=== PATIENT | female | born 1955 | race Caucasian/White ===

== ENCOUNTER 2017-03-11 13:56 | Emergency (ER) | payer MEDICAID ==
[~2017-03-11] VITALS: Ht 152.4 cm; Wt 122.5 kg
[~2017-03-11 13:56] MED LIST: ALBU8.5H5 INH; FERR325T20 PO; FOLI-17 PO; GLYB5TAB3 PO; HYDR-3240 PO; HYDR25TA6 PO; LOSA25TA5 PO; METH2.5T PO; OMEP-110 PO; SIMV20TA3 PO; VENL150C6 PO
[2017-03-11 14:03] VITALS: BP 129/85
[2017-03-11] MEDS ORDERED: METF500T27 PO (14:38)
[2017-03-11] MEDS ORDERED: VENL150C6 PO (14:38)
[2017-03-11] MEDS ORDERED: OXYC-229 PO (14:38)
== END 2017-03-11 15:07 | disposition home or self-care (01) ==
LOC: ED 15:01
DX: Z76.0 Encounter for issue of repeat prescription (principal); E11.9 Type 2 diabetes mellitus without complications; I10 Essential (primary) hypertension; M06.9 Rheumatoid arthritis, unspecified; E78.5 Hyperlipidemia, unspecified
CPT/HCPCS: 99283

== ENCOUNTER 2017-09-09 20:31 | Emergency (ER) | payer MEDICAID ==
[~2017-09-09] VITALS: Ht 165.1 cm; Wt 127.0 kg
[~2017-09-09 20:31] MED LIST changes: +FERR325T18 PO; -FERR325T20 PO; +METF500T27 PO; +OXYC-307 PO
[2017-09-09 20:34] VITALS: BP 150/86
[2017-09-09] MEDS ORDERED: KETOROLAC 30 MG/1 ML ONE (20:49)
[2017-09-09] MEDS ORDERED: ONDANSETRON ODT 4 MG ONE (20:49)
[2017-09-09] MEDS ORDERED: METHOCARBAMOL 750 MG TABLET ONE (20:49)
[2017-09-09] MEDS ORDERED: HYDROcodone/APAP 5/325 TABLET ONE (20:49)
[2017-09-09] MEDS ORDERED: KETOROLAC 30 MG/1 ML IM ONE (21:00)
[2017-09-09] MEDS ORDERED: METHOCARBAMOL 750 MG TABLET PO ONE (21:00)
[2017-09-09] MEDS ORDERED: HYDROcodone/APAP 5/325 TABLET PO ONE (21:00)
[2017-09-09] MEDS ORDERED: ONDANSETRON ODT 4 MG PO ONE (21:00)
== END 2017-09-09 21:18 | disposition home or self-care (01) ==
LOC: ED 20:45
DX: M54.41 Lumbago with sciatica, right side (principal); G89.29 Other chronic pain; E11.9 Type 2 diabetes mellitus without complications; E78.5 Hyperlipidemia, unspecified; K21.9 Gastro-esophageal reflux disease without esophagitis; Z79.84 Long term (current) use of oral hypoglycemic drugs
CPT/HCPCS: 96372; 99284; J1885; Q0162

== ENCOUNTER 2017-10-03 16:13 | Emergency (ER) | payer MEDICAID ==
[~2017-10-03] VITALS: Ht 165.1 cm; Wt 125.4 kg
[2017-10-03 16:47] LABS: HEMATOCRIT 48.2 % (34.6-47.8)
[2017-10-03 16:55] LABS: ASPARTATE AMINO TRANSFERASE 15 U/L (15-37); BLOOD UREA NITROGEN 15 mg/dL (7-18)
[2017-10-03 17:09] LABS: PATH.CAST-FLAG NOT PRESENT; SPERM-FLAG NOT PRESENT; SRC-FLAG NOT PRESENT; XTAL-FLAG NOT PRESENT; YLC-FLAG NOT PRESENT
[2017-10-03 17:47] VITALS: BP 139/75
== END 2017-10-03 17:48 | disposition home or self-care (01) ==
LOC: ED 17:15
DX: N30.01 Acute cystitis with hematuria (principal); E11.65 Type 2 diabetes mellitus with hyperglycemia; I10 Essential (primary) hypertension; M54.5 Low back pain; G89.29 Other chronic pain; K21.9 Gastro-esophageal reflux disease without esophagitis; E78.5 Hyperlipidemia, unspecified; M06.9 Rheumatoid arthritis, unspecified; M48.00 Spinal stenosis, site unspecified
CPT/HCPCS: 36415; 80053; 81001; 85025; 87077; 87086; 87186; 99284

== ENCOUNTER 2017-10-17 12:08 | Emergency (ER) | payer MEDICAID ==
[~2017-10-17] VITALS: Ht 165.1 cm; Wt 125.1 kg
[2017-10-17] MEDS ORDERED: METHOCARBAMOL 750 MG TABLET PO ONE (13:00)
[2017-10-17] MEDS ORDERED: KETOROLAC 30 MG/1 ML IM ONE (13:00)
[2017-10-17] MEDS ORDERED: KETOROLAC 30 MG/1 ML ONE (13:08)
[2017-10-17] MEDS ORDERED: METHOCARBAMOL 750 MG TABLET ONE (13:08)
[2017-10-17 14:08] VITALS: BP 121/93
== END 2017-10-17 14:12 | disposition home or self-care (01) ==
LOC: ED 13:24
DX: M54.31 Sciatica, right side (principal); E11.22 Type 2 diabetes mellitus with diabetic chronic kidney disease; I12.9 Hypertensive chronic kidney disease with stage 1 through stage 4 chronic kidney disease, or unspecified chronic kidney disease; N18.9 Chronic kidney disease, unspecified; E78.5 Hyperlipidemia, unspecified; K21.9 Gastro-esophageal reflux disease without esophagitis; G89.29 Other chronic pain; M06.9 Rheumatoid arthritis, unspecified; Z87.891 Personal history of nicotine dependence
CPT/HCPCS: 96372; 99283; J1885